=== PATIENT | female | born 1970 | race Caucasian/White ===

== ENCOUNTER 2021-09-22 09:53 | Emergency (ER) | payer OTHER, SELFPAY ==
[2021-09-22 09:55] VITALS: BP 166/99; PULSE 98; RESP 16; TEMP 36; O2SAT 94; BMI 28.3
--- NOTE | 2021-09-22 10:10 | CT_ITS ---
STUDY: CT CERVICAL SPINE WITHOUT CONTRAST REASON FOR EXAM: Female, 51 years old. Fall/trauma, pain RADIATION DOSAGE (If Supplied By Facility): CTDIvol = ( 17.37 ) mGy, DLP = ( 338.95 ) mGycm TECHNIQUE: High resolution transaxial imaging was performed without contrast material. Sagittal and coronal images were reconstructed. Individualized dose optimization techniques were used for this CT. COMPARISON: None FINDINGS: Normal craniovertebral junction. Normal anterior atlantoaxial articulation. Normal odontoid process. There is straightening of the normal cervical lordosis. Normal vertebral bodies and posterior osseous elements. C2-3: Normal endplates. Normal disc height and morphology. Normal central canal and intervertebral neuroforamina. C3-4: Moderate degree of disc space narrowing. 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 C4-5: Normal endplates. Normal disc height and morphology. Normal central canal and intervertebral neuroforamina. C5-6: Normal endplates. Normal disc height and morphology. Normal central canal and intervertebral neuroforamina. C6-7: Normal endplates. Normal disc height and morphology. Normal central canal and intervertebral neuroforamina. C7-T1: Normal endplates. Normal disc height and morphology. Normal central canal and intervertebral neuroforamina. Normal visualized soft tissue structures. CT/Spine Cervical without Contras IMPRESSION: There is straightening of the normal cervical lordosis. Moderate degree of disc space narrowing at the C3-C4 level with uncovertebral arthrosis worse on the left side causing a moderate degree of left neural foraminal stenosis. Electronically Signed: Bam Chatterjee MD at 10:54 EDT ,
--- NOTE | 2021-09-22 10:10 | CT_ITS ---
STUDY: CT BRAIN WITHOUT CONTRAST REASON FOR EXAM: Female, 51 years old. Trauma, headache RADIATION DOSAGE (If Supplied By Facility): CTDIvol = ( 47.06 ) mGy, DLP = ( 872.68 ) mGycm TECHNIQUE: Transaxial CT imaging of the brain was performed without administration of intravenous contrast material. Individualized dose optimization techniques were used for this CT. COMPARISON: No relevant priors. FINDINGS: Normal soft tissue structures. Normal calvarium. Normal size ventricles and extra-axial spaces for the patient''s age. Normal white matter tracts of the cerebral hemispheres. Normal basal ganglia and thalami. Normal brainstem. Normal cerebellum. There is no intracranial hemorrhage. There are no findings of an acute ischemic infarction. Normal visualized paranasal sinuses. CT/Brain/Head without Contrast IMPRESSION: Normal unenhanced CT scan of the brain. Electronically Signed: Bam Chatterjee MD at 10:55 EDT ,
--- NOTE | 2021-09-22 10:15 | ED.VIS.FALL ---
HPI HPI - Fall History of Present Illness Chief Complaint: Fall Informant: patient Occured/Mechanism Occurred: Weeks (2) Mechanism/Context: Yes other see narrative below Narrative: 4 steps up on a stepladder, fell backward and off onto her head versus the floor Usually ambulates: Without assistance Pain/Injury Location: Head/neck Quality of Pain: Aching Current Severity: Moderate Maximum Severity: Moderate Worsened by: nothing Relieved by: nothing Associated Symptoms Associated Symptoms: Negative for Parasthesias, Weakness, Inability to ambulate, Loss of consciousness or Amnesia Narrative Narrative: Patient had a fall 2 weeks ago, she has been having headaches since then but did not realize that the headaches were necessarily related to the fall. She does not usually get headaches. She has been having them every day. She went to urgent care today because 2 days ago she was walking on the sidewalk and suddenly fell, she is not sure if she tripped or what happened but she denies having any prodromal symptoms, it happened so suddenly that she did not have time to catch herself with her arms, she fell injuring her right foot, both knees the right hurting more so than the left, and an abrasion on her chin. She had been having some neck pain in the past 2 weeks, but it is much more severe after the fall 2 days ago and hitting her chin. She had no loss of consciousness with either fall. Urgent care was concerned that she may need CT scanning, so they referred her here to the emergency department. Patient takes no anticoagulants or antiplatelet medications and is healthy otherwise. She denies having any known weakness or numbness in arms or legs, nor bowel or bladder dysfunction since this happened and denies having or experiencing any back pain. [facility] Medical History no medical history no medical history Home Medications metoclopramide HCl 10 mg tablet 10 mg PO Q6H PRN Nausea And Vomiting #15 tabs 09/22/21 [Rx Last Taken Unknown] Allergy/AdvReac Type Severity Reaction Status Date / Time Penicillins AdvReac Hives Verified 09/22/21 09:58 Social History Smoking Status: Never smoker ROS ROS ED Constitutional Constitutional ED: Denies chills or fever(s) Eyes Eyes: Denies change in vision or diplopia ENT ENT ED: Denies ear pain, epistaxis, facial pain or rhinorrhea Cardiovascular Cardiovascular: Denies chest pain or palpitations Respiratory/Chest Respiratory/Chest: Denies cough or dyspnea Gastrointestinal Gastrointestinal: Denies abdominal pain, diarrhea, melena, nausea or vomiting Genitourinary Genitourinary ED: Denies dysuria or hematuria Musculoskeletal Musculoskeletal: Reports extremity pain and neck pain; Denies back pain Integumentary Reports Abrasions; Denies abscess, laceration or rash Neurologic Neurologic: Reports headache(s); Denies confusion, paresthesias or weakness EXAM Physical Exam Const Vital Signs: 09/22/21 09:55 09/22/21 10:56 Temperature 96.8 F L Temperature Source Temporal Pulse Rate 98 65 Respiratory Rate 16 18 Blood Pressure 166/99 H 161/93 H Blood Pressure Mean 121 115 Pulse Ox 94 97 Oxygen Delivery Method Room Air Room Air Positive well nourished and well developed General Appearance ED: well developed and NAD HEENT Reports nasal mucous membranes and turbinates normal HEENT Narrative: Abrasion right jawline without crepitance tenderness or trismus atraumatic Face and Sinus: Negative for facial tenderness Eyes PERRL and EOMs intact bilaterally Visual Acuity: other Other Details: no entrapment or pain with extraocular movements Neck full ROM and supple Neck Narrative: Tenderness from around C3 down to C7 and not below. No step-off or obvious signs of trauma. General: tenderness Chest Wall inspection of chest normal and palpation of chest normal Chest: symmetrical chest wall rise; Negative for crepitus or tenderness Resp normal respiratory effort and clear to auscultation bilaterally Percussion: other equal BS bilat Cardio no murmurs Rate: regular rate Rhythm: regular rhythm GI normal to inspection, nondistended, normoactive bowel sounds, soft to palpation and non-tender Back/Spine normal ROM Cervical Spine: Negative for cervical spine tenderness Thoracic Spine / Upper Back: Negative for thoracic spinal tenderness Lumbar Spine / Lower Back: lumbar spinal tenderness L2, L3 and L4 Extremity normal to inspection and full ROM Extremity Narrative: Tender diffusely throughout the right knee. No deformities. No effusion. Abrasions anterior both knees with no tenderness on the left. She has pain with extreme extension and flexion of the right knee but she is able, all ligaments are stable with short endpoints no significant discomfort on stressing. Also tender right forefoot, toes 2-4, toe #4 MTPJ is the most tender area both dorsal and plantar. No deformities. No significant ecchymosis. No midfoot or hindfoot tenderness. Otherwise extremities benign. General Extremety ED: Yes tenderness Neuro oriented x3, CN's II-XII intact bilaterally, moves all extremities, no focal motor deficits and no sensory deficits noted Neuro Narrative: Excellent symmetric strength throughout all 4 extremities. [place] Coma Scale: document GCS findings Spontaneous Obeys Commands Oriented 15 Sensorium / Orientation: awake and alert Psych mental status grossly normal and thought process normal Skin Skin Narrative: Abrasions as noted above no lacerations or other signs of trauma. Lesions: no lesions Rashes: no rashes MDM MDM MDM Narrative Medical decision making narrative: CT of the patient's head and cervical spine were obtained and are negative for any acute. Three-view x-ray series of the right foot, 4 view x-ray series of the right knee, and three-view x-ray series of the lumbar spine on my interpretation are negative for any acute, radiology in agreement. Patient is reassured, symptoms all likely due to these falls, should be self-limiting. If not recommend close outpatient follow-up with her PCP. Will be offered short course of reglan to use as needed and directed to her PC and to continue OTC NSAIDS, which were helping some. She does not have any exam findings of a central cord syndrome or any other neurologic deficit. Lab Data Attestation: I reviewed the patient's lab results. Radiography Diagnostic Testing: Clinical Impression(s) from Imaging Studies Brain CT 09/22/21 10:10 IMPRESSION: Normal unenhanced CT scan of the brain. Electronically Signed: Bam Chatterjee MD at 10:55 EDT , Cervical Spine CT 09/22/21 10:10 IMPRESSION: There is straightening of the normal cervical lordosis. Moderate degree of disc space narrowing at the C3-C4 level with uncovertebral arthrosis worse on the left side causing a moderate degree of left neural foraminal stenosis. Electronically Signed: Bam Chatterjee MD at 10:54 EDT , Foot X-Ray 09/22/21 10:35 IMPRESSION: Normal x-ray examination of the foot. Electronically Signed: Bam Chatterjee MD at 10:56 EDT , Knee X-Ray 09/22/21 10:35 IMPRESSION: Normal x-ray examination of the knee. Electronically Signed: Bam Chatterjee MD at 10:56 EDT , Lumbar Spine X-Ray 09/22/21 10:35 IMPRESSION: Normal x-ray examination of the lumbar spine. No acute abnormality, evidence of erosive changes or fusion. Electronically Signed: John Muller at 10:52 EDT , Discharge Plan Triage Chief Complaint: Fall ED Provider: Al Kidd Dx/Rx/DC Orders Clinical Impression: Multiple falls, Closed head injury without loss of consciousness, Acute cervical myofascial strain, Acute lumbosacral myofascial strain, Contusion of right foot, Contusion of knee, right, Abrasion, multiple sites Instructions: After a Concussion, ED Neck Sprain or Strain Prescriptions: New metoclopramide HCl [metoclopramide HCl] 10 MG tablet 10 mg PO Q6H PRN (Reason: Nausea And Vomiting) Qty: 15 0RF Primary Care Provider: Paola Grider Referrals: Paola Grider [Other] - 3-5 Days if not improving Disposition Disposition: Home, Self Care
--- NOTE | 2021-09-22 10:35 | RAD_ITS ---
STUDY: X-RAY - LUMBAR SPINE REASON FOR EXAM: Female, 51 years old. Fall. Pain. TECHNIQUE: 3 view(s) of the lumbar spine were obtained. COMPARISON: None FINDINGS: Normal lumbar lordosis. There is no substantial scoliosis. There is a normal alignment of the vertebrae. Normal vertebral bodies and endplates. Normal disc space heights. The soft tissue structures are unremarkable. RAD/Lumbar Spine 2 or 3 Views IMPRESSION: Normal x-ray examination of the lumbar spine. No acute abnormality, evidence of erosive changes or fusion. Electronically Signed: John Muller, at 10:52 EDT ,
--- NOTE | 2021-09-22 10:35 | RAD_ITS ---
STUDY: X-RAY - RIGHT FOOT CLINICAL: Female, 51 years old. Fall/pain TECHNIQUE: 3 view(s) of the foot. COMPARISON: None. FINDINGS: Normal talus, calcaneus, and tarsal bones. Normal visualized subtalar, talonavicular, calcaneocuboid, tarsal and tarsometatarsal articulations. Normal metatarsi. Normal metatarsophalangeal joint of the great toe. Normal tibial and fibular sesamoid bones. Normal interphalangeal joint of the great toe. Normal phalanges of the great toe. Normal second through fifth metatarsophalangeal joints. Normal interphalangeal joints and phalanges of the lesser toes. The soft tissue structures are unremarkable. RAD/Foot min 3 Views IMPRESSION: Normal x-ray examination of the foot. Electronically Signed: Bam Chatterjee MD at 10:56 EDT ,
--- NOTE | 2021-09-22 10:35 | RAD_ITS ---
STUDY: X-RAY - RIGHT KNEE REASON FOR EXAM: Female, 51 years old. Fall/injury TECHNIQUE: 4 view(s) of the knee. COMPARISON: None. FINDINGS: Normal visualized distal femur. Normal visualized proximal tibia and fibula. Normal proximal tibiofibular articulation. Normal medial femorotibial compartment. Normal lateral femorotibial compartment. Normal patellofemoral articulation. The soft tissue structures are unremarkable. RAD/Knee 4 or More Views IMPRESSION: Normal x-ray examination of the knee. Electronically Signed: Bam Chatterjee MD at 10:56 EDT ,
[2021-09-22 10:56] VITALS: BP 161/93; PULSE 65; RESP 18; O2SAT 97
--- NOTE | 2021-09-22 11:00 | CM.ED ---
Social Work Note Reason for Referral: No PCP SW reviewed chart. Pt has no PCP listed. SW in to speak with pt. Pt states that she does have a PCP and it is Paola Anthony through [facility] in [place]. Yany Stevenson [employer], [employer]
[2021-09-22 11:58] VITALS: BP 149/87; PULSE 85; RESP 18; O2SAT 96
== END 2021-09-22 12:00 | disposition home or self-care (01) ==
PROVIDERS: Emergency Provider Emergency Medicine; Visit Provider Emergency Medicine
DX: S09.90XA Unspecified injury of head, initial encounter (principal); S80.212A Abrasion, left knee, initial encounter; W19.XXXA Unspecified fall, initial encounter; S50.812A Abrasion of left forearm, initial encounter; S80.01XA Contusion of right knee, initial encounter; S16.1XXA Strain of muscle, fascia and tendon at neck level, initial encounter; S50.811A Abrasion of right forearm, initial encounter; S39.012A Strain of muscle, fascia and tendon of lower back, initial encounter; S90.31XA Contusion of right foot, initial encounter; S80.211A Abrasion, right knee, initial encounter
CPT/HCPCS: 70450; 72100; 72125; 73564; 73630; 99282